=== PATIENT | female | born 1990 | race Two or more races ===

== ENCOUNTER 2022-05-13 19:46 | Emergency (ER) | payer MEDICAID, OTHER ==
[~2022-05-13] VITALS: Ht 165.1 cm; Wt 86.4 kg
[2022-05-13 22:14] LABS: Albumin 3.5 g/dL (3.4-5.0); BUN/Creatinine Ratio 24.6; Calcium 9.3 mg/dL (8.5-10.1); Potassium 4.3 mmol/L (3.5-5.1)
[2022-05-13 22:17] LABS: Basophils # (auto) 0 10 ^3/uL (0-0.2); Basophils % (auto) 0.2 % (0.0-2.0); Bilirubin, Total 0.2 mg/dL (0.2-1.0); Eosinophils # (auto) 0 10 ^3/uL (0-0.8); Eosinophils % (auto) 0.3 % (0.0-7.0); Hemoglobin 12.4 g/dL (12.2-16.2); Lymphocytes # (auto) 3.2 10 ^3/uL (0.4-5.4); Lymphocytes % (auto) 28.5 % (10.0-50.0); Mean Corpuscular Hemoglobin 29.1 pg (28.0-32.0); Mean Corpuscular Hgb Conc. 34.3 g/dL (32.0-36.0); Mean Corpuscular Volume 84.9 fL (80.0-100.0); Monocytes # (auto) 0.6 10 ^3/uL (0-1.3); Monocytes % (auto) 5.4 % (0.0-12.0); Neutrophils # (auto) 7.3 10 ^3/uL (1.6-8.6); Neutrophils % (auto) 65.6 % (37.0-80.0); Red Blood Cells 4.24 10^6/uL (4.0-5.20); Red Cell Distribution Width 14.1 % (11.8-14.3); Total Protein 7.3 g/dL (6.4-8.2); White Blood Cell 11.1 10^3/uL (4.4-10.8)
[2022-05-14 01:14] VITALS: BP 124/80
== END 2022-05-14 01:18 | disposition home or self-care (01) ==
LOC: ER 19:49
DX: O20.0 Threatened abortion (principal); Z3A.09 9 weeks gestation of pregnancy
CPT/HCPCS: 36415; 76801; 80053; 84702; 85025